=== PATIENT | female | born 1960 | race Caucasian/White ===

== ENCOUNTER → 2017-06-02 | Day surgery (SDC) | payer BC ==
[2017-05-31 09:25] LABS: ANION GAP 16.1 mmol/L (8-16); BLOOD UREA NITROGEN 17 mg/dL (7-26); BUN/CREATININE RATIO 21 (6-25); CALCIUM 10.2 mg/dL (8.4-10.2); CARBON DIOXIDE 29 mmol/L (22-29); CHLORIDE 103 mmol/L (98-107); EST GLOMERULAR FILTRATION RATE > 60 ML/MIN (60-); GLUCOSE 100 mg/dL (74-118); POTASSIUM 4.1 mmol/L (3.5-5.1); SODIUM 144 mmol/L (136-145)
[~2017-06-02] MED LIST: BUPIVACAINE HCL 0.5% INJ 30 ML VIAL INJ ONE; CLINDAMYCIN PHOS 900MG/ D5W 50 50 ML IV ONE; DEXAMETHASONE SOD PHOS INJ 4 MG/ML VIAL ONE; FENTANYL CITRATE/PF 100MCG/2 ML INJ ONE; LIDOCAINE HCL 2% LOCAL INJ 5 ML SDV VIAL INJ ONE; LIPITOR10 MG PO; LISINOPRIL10 MG PO; MIDAZOLAM HCL 2 MG/2 ML VIAL ONE; NEXIUM40 M1 PO; PROPOFOL IV EMULSION 10 MG/ML 20 ML VIAL ONE; SEVOFLURANE INHAL SOLN 250 ML PEN BTL ONE; SPIRONOLACTONE25 MG PO; SYNTHROID50 MCG PO; VALTREX500 MG PO; VESICARE5 MG PO
--- NOTE | 2017-06-03 09:46 | Operative Report ---
DATE OF PROCEDURE: June 02, 2017 PREOPERATIVE DIAGNOSIS: Right ring finger mass. POSTOPERATIVE DIAGNOSIS: Right ring finger mass. OPERATIONS/PROCEDURES PERFORMED 1. The patient underwent a removal of the right ring finger mass. 2. Release of the A1 mona for the right ring finger. EMISSIONS ENGINEER: None. ANESTHESIA: General endotracheal intubation anesthesia. IV FLUIDS: Per the anesthesia record. BRIEF DESCRIPTION OF THE PATIENT'S OPERATIVE PROCEDURE: Ms. Avery was taken to the operating room and placed in the supine position on the operating table. Following induction of general anesthesia, as well as endotracheal intubation, the patient's right upper extremity was examined under anesthesia. She was found to have a palpable mass along the ulnar border of her right ring finger metacarpal in the region of the metacarpal neck. The patient's upper extremity was prepped and draped in a standard surgical fashion. The case was begun by creating an incision directly over the mass. This incision was carried through skin only. Blunt dissection was used to deepen the incision, and the mass was identified to be arising from the A1 mona. The mass had the appearance of a ganglion cyst, although the mass was fairly rigid. It had no soft tissue investments. It was easily isolated and Ragnell retractors were placed on either side of the A1 mona to protect the neurovascular structures. The mass was excised with a portion of the A1 mona. The remaining of the A1 mona was then released. The wound was copiously irrigated. Evaluation of the wound demonstrated no further evidence of abnormal growths. The wound was then closed in a single layer fashion. Sterile dressings were applied. The patient was then awakened and taken to the postanesthesia care unit in stable condition. Job#: [id number]
== END | disposition home or self-care (01) ==
LOC: OR 09:05
PROVIDERS: ATTEND Specialist
DX: M67.441 Ganglion, right hand (principal); M65.341 Trigger finger, right ring finger; M19.041 Primary osteoarthritis, right hand; I10 Essential (primary) hypertension; K29.70 Gastritis, unspecified, without bleeding; K21.9 Gastro-esophageal reflux disease without esophagitis; K58.9 Irritable bowel syndrome, unspecified; Z79.82 Long term (current) use of aspirin; Z01.810 Encounter for preprocedural cardiovascular examination; Z01.812 Encounter for preprocedural laboratory examination
CPT/HCPCS: 26160; 36415; 80048; 88304; 93005; J1100; J2001; J2250

== ENCOUNTER → 2018-05-05 | Outpatient (CLI) | payer BC ==
[~2018-05-05] MED LIST changes: -BUPIVACAINE HCL 0.5% INJ 30 ML VIAL INJ ONE; -CLINDAMYCIN PHOS 900MG/ D5W 50 50 ML IV ONE; -DEXAMETHASONE SOD PHOS INJ 4 MG/ML VIAL ONE; -FENTANYL CITRATE/PF 100MCG/2 ML INJ ONE; -LIDOCAINE HCL 2% LOCAL INJ 5 ML SDV VIAL INJ ONE; -MIDAZOLAM HCL 2 MG/2 ML VIAL ONE; -PROPOFOL IV EMULSION 10 MG/ML 20 ML VIAL ONE; -SEVOFLURANE INHAL SOLN 250 ML PEN BTL ONE
== END ==
LOC: CARD 08:51
PROVIDERS: ATTEND Family Medicine
DX: I65.23 Occlusion and stenosis of bilateral carotid arteries (principal); R01.1 Cardiac murmur, unspecified
CPT/HCPCS: 93880

== ENCOUNTER → 2021-11-11 | Outpatient (CLI) | payer BC | LOC: MRI 07:35 | PROVIDERS: ATTEND Specialist | DX: S83.221A Peripheral tear of medial meniscus, current injury, right knee, initial encounter (principal) ==